=== PATIENT | male | born 1960 | race Caucasian/White ===

== ENCOUNTER 2022-11-16 04:02 | Inpatient (IN) ==
[2022-11-16] MEDS ORDERED: AMPICILLIN/SULBACTAM SOD 3,000 MG in 0.9 % SODIUM CHLORIDE 100 ML IV STA (04:20)
[2022-11-16] MEDS ORDERED: ACETAMINOPHEN 325 MG TAB PO STA (04:22)
--- NOTE | 2022-11-16 04:22 | Emergency Department Note ---
History of Present Illness General Chief complaint: Swelling/Edema to Extremity Stated complaint: EYES SWOLLEN SHUT, Time Seen by Provider: 11/16/22 04:10 History of Present Illness Maximum Pain Intensity: 8 This is a 62-year-old male that presents to the emergency department via private vehicle accompanied by with complaints of "right-sided facial swelling, pain, eye swollen". The patient notes that he went to bed this evening around 9 PM without any issue or symptoms. He then notes that he awoke around 3:45 AM with pain and swelling to the right side of the face. He notes the right lower eyelid, right side of the nose, right side of the face extending to the upper gumline is uncomfortable and swollen. Current pain 8/10. Patient denies any fevers or chills. This has never happened before. Patient denies any current medication use. Home Medications Medication Instructions Recorded Confirmed Type Cyclobenzaprine Hcl (Flexeril PRN ##0 02/12/09 History Unknown Dose) Propoxyphene-N/Acetaminophen 1 tab PO Q6HR PRN ##0 02/12/09 History (Darvocet-N 100 *) Allergies Allergy/AdvReac Type Severity Reaction Status Date / Time No Known Allergies Allergy Unknown Unverified 02/12/09 18:51 Past Med/Surg History Medical History Loss of eye Surgical History Hx of knee surgery Social History Smoking Status: Current every day smoker Tobacco Type: Cigarettes Preferred Language: Estonian Feels Safe at Home: Yes Review of Systems A total of 10 systems reviewed and were otherwise negative Physical Exam Vital Signs Vital Signs - 24 hr 11/16/22 04:05 11/16/22 05:09 11/16/22 07:00 Temperature 36.0 C L 37.3 C Temperature Source Temporal Artery Scan Oral Pulse Rate 77 Pulse Rate [Finger] 66 58 L Pulse Rhythm [Finger] Regular Respiratory Rate 20 18 18 Respiratory Effort / Characteristics Non-Labored Spontaneous Non-Labored Respiratory Depth Normal Normal Respiratory Pattern Regular Blood Pressure 158/92 H Blood Pressure [Left Arm] 150/83 H 168/75 H Blood Pressure Mean 114 Blood Pressure Mean [Left Arm] 105 106 Pulse Oximetry 100 99 98 Oxygen Delivery Method Room Air Room Air Room Air Sepsis New/Unexplained Change in Mental Status N/A Sepsis Action Taken by Nursing No Action Required VITAL SIGNS - Vital signs and nursing notes were reviewed. Stable and afebrile. GENERAL -62-year-old male appearing his stated age who is in no acute distress. Communicates well with provider and answers questions appropriately. SKIN -erythema and edema present to the right-sided infraorbital soft tissues and soft tissues overlying the premaxillary region on the right and right superior lip region. No meningeal or petechial rash. HEAD - NC/AT. EYES - PERRL with EOMI bilaterally. Sclera anicteric. EARS - No deformities of external structures noted on gross examination bilaterally. NOSE - Midline and without cyanosis. No epistaxis or purulent drainage noted. MOUTH/OROPHARYNX - Without perioral cyanosis. Patient edentulous to the superior dentition with erythema to the gumline. Right dentition without evidence of acute abnormality. Buccal mucosa pink and moist and without leukoplakia. Tongue midline with equal elevation of palate bilaterally. No tonsillar hypertrophy, erythema, or exudates noted. No drooling, stridor, trismus, wheezing or tripoding. Normal phonation. NECK - Neck with FROM. No lymphadenopathy noted. No nuchal rigidity. No evidence of Avtar's angina. LUNGS - Chest wall symmetric without accessory muscle use, intercostals retractions, or central cyanosis. Normal vesicular breath sounds CTA B/L. No wheezes, rales, or rhonchi appreciated. CARDIAC - RRR with S1/S2. No murmur, rubs, or gallops appreciated. EXTREMITIES - No clubbing or peripheral cyanosis. +5/5 strength noted in UE/LE bilaterally. NEUROLOGIC - Cranial nerves II through XII grossly intact. PSYCH - A&O, and cooperates fully with examiner. Pt is very pleasant and interacts well with examiner. Course Administered Medications Discontinued Medications Acetaminophen (Acetaminophen 325 Mg Tab) 650 mg PO NOW STA Stop: 11/16/22 04:23 Last Admin: 11/16/22 04:50 Dose: 650 mg Documented By: Ampicillin Sodium/Sulbactam Sodium 3,000 mg/ Sodium Chloride 108 mls @ 200 mls/hr IV NOW STA; Protocol Stop: 11/16/22 04:52 Last Infusion: 11/16/22 05:57 Dose: 0 mls/hr Documented By: Admin: 11/16/22 05:06 Dose: 200 mls/hr Documented By: FARZANEH Ioversol (Optiray 350 100ml) 100 ml IV ONCE ONE Stop: 11/16/22 05:02 Last Admin: 11/16/22 05:02 Dose: 85 ml Documented By: RENNY Medical Decision Making Laboratory Data Result diagrams: 11/16/22 04:30 11/16/22 04:30 Lab Results 11/16/22 11/16/22 11/16/22 Range/Units 04:30 04:30 04:30 WBC 9.10 (4.8-10.8) K/ul RBC 5.46 (4.63-6.08) M/uL Hgb 17.1 (14.0-18.0) g/dl POC Hgb (14.0-18.0) g/dl Hct 50.4 (40.1-51.0) % POC Hct (42-52) % MCV 92.3 (80.0-100.0) fL MCH 31.3 (25.0-34.0) pg MCHC 33.9 (32.0-36.0) g/dL RDW Std Deviation 44.6 (36.4-46.3) fL RDW Coeff of Bradford 13.2 (11.5-14.5) % Plt Count 154 (130-400) K/uL MPV 9.1 L (9.4-12.4) fL Immature Gran % (Auto) 0.3 % Neut % (Auto) 69.8 % Lymph % (Auto) 21.0 % [place] % (Auto) 6.6 % Eos % (Auto) 1.9 % Baso % (Auto) 0.4 % Neut # (Auto) 6.35 (1.4-6.5) K/uL Lymph # (Auto) 1.91 (1.2-3.4) K/uL [place] # (Auto) 0.60 (0.24-0.82) K/uL Eos # (Auto) 0.17 (0-0.50) K/uL Baso # (Auto) 0.04 (0-0.2) K/uL Immature Gran # (Auto) 0.03 H (0.00-0.02) K/uL POC Sodium (135-144) mmol/L Sodium 139 (136-145) mmol/L POC Potassium (3.3-5.0) mmol/L Potassium 4.3 (3.5-5.1) mmol/L POC Chloride (101-112) mmol/L Chloride 106 (98-107) mmol/L Carbon Dioxide 30 (21-32) mmol/L POC Total CO2 (24-31) mmol/L Anion Gap 3 (3-11) POC Anion Gap (16-25) mmol/L POC BUN (7-18) mg/dl BUN 13 (6-23) mg/dl Creatinine 0.72 (0.6-1.4) mg/dl POC Creatinine (0.6-1.3) mg/dl Est Cr Clr Drug Dosing 105.0 ml/min Est GFR ( Amer) 115.1 ml/min Est GFR (Non-Af Amer) 99.3 ml/min BUN/Creatinine Ratio 18.1 (10-20) Glucose 124 H (70-99(Fasting)) mg/dl POC Glucose (other) (70-99) mg/dl Lactate (0.4-2.0) mmol/L Calcium 8.8 (8.5-10.1) mg/dl POC Ioniz Calcium Sri (1.12-1.32) mmol/l Total Bilirubin 0.6 (0.2-1.0) mg/dl AST 12 L (13-39) U/L ALT 10 (7-52) U/L Alkaline Phosphatase 117 H (34-104) U/L Total Protein 7.2 (6.0-8.3) gm/dl Albumin 4.1 (3.4-5.0) gm/dl Globulin 3.1 (2.5-4.0) gm/dl Albumin/Globulin Ratio 1.3 (0.9-2) Procalcitonin < 0.05 (0-0.5) ng/ml SARS-CoV-2, RNA, NAAT (NEGATIVE) 11/16/22 11/16/22 11/16/22 Range/Units 04:30 04:30 04:42 WBC (4.8-10.8) K/ul RBC (4.63-6.08) M/uL Hgb (14.0-18.0) g/dl POC Hgb 17.7 (14.0-18.0) g/dl Hct (40.1-51.0) % POC Hct 52 (42-52) % MCV (80.0-100.0) fL MCH (25.0-34.0) pg MCHC (32.0-36.0) g/dL RDW Std Deviation (36.4-46.3) fL RDW Coeff of Bradford (11.5-14.5) % Plt Count (130-400) K/uL MPV (9.4-12.4) fL Immature Gran % (Auto) % Neut % (Auto) % Lymph % (Auto) % [place] % (Auto) % Eos % (Auto) % Baso % (Auto) % Neut # (Auto) (1.4-6.5) K/uL Lymph # (Auto) (1.2-3.4) K/uL [place] # (Auto) (0.24-0.82) K/uL Eos # (Auto) (0-0.50) K/uL Baso # (Auto) (0-0.2) K/uL Immature Gran # (Auto) (0.00-0.02) K/uL POC Sodium 141 (135-144) mmol/L Sodium (136-145) mmol/L POC Potassium 4.2 (3.3-5.0) mmol/L Potassium (3.5-5.1) mmol/L POC Chloride 103 (101-112) mmol/L Chloride (98-107) mmol/L Carbon Dioxide (21-32) mmol/L POC Total CO2 28 (24-31) mmol/L Anion Gap (3-11) POC Anion Gap 15.0 L (16-25) mmol/L POC BUN 13 (7-18) mg/dl BUN (6-23) mg/dl Creatinine (0.6-1.4) mg/dl POC Creatinine 0.8 (0.6-1.3) mg/dl Est Cr Clr Drug Dosing ml/min Est GFR ( Amer) ml/min Est GFR (Non-Af Amer) ml/min BUN/Creatinine Ratio (10-20) Glucose (70-99(Fasting)) mg/dl POC Glucose (other) 123 H (70-99) mg/dl Lactate 1.3 (0.4-2.0) mmol/L Calcium (8.5-10.1) mg/dl POC Ioniz Calcium Sri 1.19 (1.12-1.32) mmol/l Total Bilirubin (0.2-1.0) mg/dl AST (13-39) U/L ALT (7-52) U/L Alkaline Phosphatase (34-104) U/L Total Protein (6.0-8.3) gm/dl Albumin (3.4-5.0) gm/dl Globulin (2.5-4.0) gm/dl Albumin/Globulin Ratio (0.9-2) Procalcitonin (0-0.5) ng/ml SARS-CoV-2, RNA, NAAT NEGATIVE (NEGATIVE) Imaging Data Radiologist's Impression: Face CT 11/16/22 04:[address] WITH CONTRAST CLINICAL HISTORY: Right sided facial pain and swelling. COMPARISON STUDY: No previous studies for comparison. TECHNIQUE: Axial images through the face were obtained following intravenous injection of 85 cc of Optiray 350 IV. Sagittal and coronal reconstructions were viewed. Automated exposure control was utilized for the study. A dose lowering technique was utilized adhering to the principles of ALARA. FINDINGS: Visualized portions of the intracranial contents are unremarkable. Mastoid air cells are clear. There is moderate polypoid mucosal thickening of the right maxillary sinus. Otherwise, there is mild sinus mucosal thickening. Le ft globe prosthesis is noted. There is extensive right facial cellulitis, including preseptal cellulitis. No postseptal component is noted. There is no orbital abscess. The etiology is odontogenic with an 8 mm abscess along the right anterior aspect of the maxilla on axial image 164 of 281. This is related to a periapical abscess. Given numerous absent teeth, it is difficult to determine which is is the etiology.. There are numerous periapical absceses/lucencies. No additional soft tissue abscesses are present. There is no soft tissue gas. Parotid and submandibular glands are unremarkable. Major vasculature of the upper neck is patent. IMPRESSION: Extensive right facial cellulitis odontogenic in etiology. Extensive odontogenic disease with numerous absent teeth and periapical abscesses and lucencies. Associated 8 mm abscess along the right anterior aspect of the maxilla which is the etiology for this infectious process. Associated right preseptal cellulitis. No post septal component. No orbital abscess. ACT 112: Negative or not required by law. Electronically signed by: Fernando Tracey M.D. 11/16/2022 6:59 AM MDM Narrative Patient was seen and evaluated as above in room B09. Review was performed of nursing notes and vital signs. I did review pertinent previous visits and patient history. After obtaining a thorough history and physical examination the above work up was performed. Patient presents to us today for evaluation of right-sided facial swelling that he noticed when he awoke today. He clinically on examination has a fair amount of erythema and edema to the right side of the face concerning for cellulitis. No pain with EOMs. No evidence of orbital cellulitis clinically. Options of care were discussed with the patient. IV access was established. Labs were drawn. There is no leukocytosis or concerning anemia. No emergent metabolic disturbance. Mild hyperglycemia. Pro-[place]ilton normal. COVID testing negative. CT scan results as above. Extensive facial cellulitis with abscess noted. I discussed this with the on-call oral maxillofacial surgeon, Dr. Sarmiento. He will review the case. Patient will be admitted to the medicine service. IV antibiotics ordered at time of initial evaluation over clinical concern of cellulitis. Case discussed with the hospitalist. Please refer to further documentation regarding his stay. Patient initially wanted acetaminophen for pain and this was ordered. Pain then increased later in his stay. Morphine also ordered in addition to Zofran. GCS: 15 In the evaluation and treatment of this patient the following differential diagnoses were entertained: Facial cellulitis, abscess, orbital cellulitis, fracture, angioedema, among others. Impression & Plan Cellulitis of face, Abscess of face Discharge Plan Visit Data Chief Complaint: Swelling/Edema to Extremity Stated Complaint: EYES SWOLLEN SHUT, ED Provider: Isaac Sanchez ED Midlevel Provider: Ovi Moran Discharge Problem: Cellulitis of face, Abscess of face Patient Disposition: Admitted As Inpatient Condition: Good Forms Stand Alone Forms: My [employer] Prescriptions Prescriptions: No Action Cyclobenzaprine Hcl (Flexeril Unknown Dose) tablet PRN Qty: 0 Propoxyphene-N/Acetaminophen (Darvocet-N 100 *) tablet 1 tab PO Q6HR PRN Qty: 0 Referrals Referrals: Jesse Castano MD [Primary Care Provider] -
[2022-11-16 04:51] LABS: Basophils # (auto) 0.04 K/uL (0-0.2); Basophils % (auto) 0.4 %; Eosinophils # (auto) 0.17 K/uL (0-0.50); Eosinophils % (auto) 1.9 %; Hematocrit (blood only) 50.4 % (40.1-51.0); Hemoglobin 17.1 g/dl (14.0-18.0); Immature Granulocytes # (auto) 0.03 K/uL (0.00-0.02); Immature Granulocytes % (auto) 0.3 %; Lymphocytes # (auto) 1.91 K/uL (1.2-3.4); Mean Corpuscular Hemoglobin 31.3 pg (25.0-34.0); Mean Corpuscular Hgb Conc 33.9 g/dL (32.0-36.0); Mean Corpuscular Volume 92.3 fL (80.0-100.0); Mean Platelet Volume 9.1 fL (9.4-12.4); Monocytes % (auto) 6.6 %; Neutrophils # (auto) 6.35 K/uL (1.4-6.5); Neutrophils % (auto) 69.8 %; Platelet Count 154 K/uL (130-400); RDW Coefficient of Variation 13.2 % (11.5-14.5); RDW Standard Deviation 44.6 fL (36.4-46.3); Red Blood Count 5.46 M/uL (4.63-6.08)
[2022-11-16 04:56] LABS: iSTAT Creatinine 0.8 mg/dl (0.6-1.3); iSTAT Hemoglobin 17.7 g/dl (14.0-18.0); iSTAT Ionized Calcium 1.19 mmol/l (1.12-1.32); iSTAT Potassium 4.2 mmol/L (3.3-5.0)
[2022-11-16] MEDS ORDERED: OPTIRAY 350 100ml IV ONE (05:01)
[2022-11-16 05:18] LABS: Albumin Globulin Ratio 1.3 (0.9-2); Albumin Level 4.1 gm/dl (3.4-5.0); BUN Creatinine Ratio 18.1 (10-20); Bilirubin,Total 0.6 mg/dl (0.2-1.0); Calcium 8.8 mg/dl (8.5-10.1); Est GFR (African American) 115.1 ml/min; Est GFR (Non-African American) 99.3 ml/min; Globulin 3.1 gm/dl (2.5-4.0); Potassium 4.3 mmol/L (3.5-5.1); Total Protein 7.2 gm/dl (6.0-8.3)
--- NOTE | 2022-11-16 07:00 | CT Scan Report ---
FACIAL CT WITH CONTRAST CLINICAL HISTORY: Right sided facial pain and swelling. COMPARISON STUDY: No previous studies for comparison. TECHNIQUE: Axial images through the face were obtained following intravenous injection of 85 cc of Op tiray 350 IV. Sagittal and coronal reconstructions were viewed. Automated exposure control was utiliz ed for the study. A dose lowering technique was utilized adhering to the principles of ALARA. FINDINGS: Visualized portions of the intracranial contents are unremarkable. Mastoid air cells are cl ear. There is moderate polypoid mucosal thickening of the right maxillary sinus. Otherwise, there is mild sinus mucosal thickening. Left globe prosthesis is noted. There is extensive right facial cellul itis, including preseptal cellulitis. No postseptal component is noted. There is no orbital abscess. The etiology is odontogenic with an 8 mm abscess along the right anterior aspect of the maxilla on ax ial image 164 of 281. This is related to a periapical abscess. Given numerous absent teeth, it is dif ficult to determine which is is the etiology.. There are numerous periapical absceses/lucencies. No a dditional soft tissue abscesses are present. There is no soft tissue gas. Parotid and submandibular g lands are unremarkable. Major vasculature of the upper neck is patent. IMPRESSION: Extensive right facial cellulitis odontogenic in etiology. Extensive odontogenic disease with numerou s absent teeth and periapical abscesses and lucencies. Associated 8 mm abscess along the right anteri or aspect of the maxilla which is the etiology for this infectious process. Associated right presepta l cellulitis. No post septal component. No orbital abscess. ACT 112: Negative or not required by law. Electronically signed by: Fernando Tracey M.D. 11/16/2022 6:59 AM
[2022-11-16] MEDS ORDERED: ONDANSETRON INJ 2 MG/ML 2 ML VIAL IV STA (08:21)
[2022-11-16] MEDS ORDERED: MoRPHine SULFATE 4 MG/ML 1 ML CARP\\VIAL IV STA (08:21)
--- NOTE | 2022-11-16 08:37 | History & Physical Report ---
Date of Service November 16, 2022 Assessment & Plan (1) Cellulitis of face: (2) Abscess of face: Plan: - Admit to med surg - CT of the face shows multiple abscesses, the largest measuring 8 mm - Started on Unasyn IV in the ER, will continue - Consult oral maxillofacial surgery, Dr. Sarmiento for possible I&D - appreciate recs - Continue n.p.o. status for now in case of needs for surgical procedure - If remains NPO, then start NSS at 80 ml/hr for maintenance (3) Tobacco abuse: Plan: -Cessation encouraged, currently smokes 7 cigarettes a day, since age 12 -- 50 pack year history with previously smoking 1 ppd. -Nicotine patch offered however the patient declined (4) GERD (gastroesophageal reflux disease): Plan: -Stable, does not take any medication (5) HLD (hyperlipidemia): Plan: -Check lipid panel with a.m. labs, outpatient epic laboratories reviewed showing elevation from 2020 but no other labs since then. Pt previously was on fish oil and stopped. - Educate on diet modification, exercise and/or initiation of fish oil/statin therapy pending result DVT PPx: - teds, scds, ambulatory CODE: Full code Dispo: From home, likely to remain in the hospital x 1-2 days History of Present Illness Chief Complaint: Facial swelling Primary Care Provider: Jesse Castano MD This is a 62 yo M with PMHx of HLD, GERD, history of left prosthetic eye, and tobacco abuse who presents to the hospital with acute onset of facial swelling and under eye swelling. Patient notes that he was in his normal state of health yesterday, eating and drinking as normal, but upon waking today around approximately 4 AM to get ready to go to work, had extreme pain of the right side of his face and of his gums where he was unable to place his upper dentures due to pain. When he looked in the mirror he was shocked to see the amount of swelling and pocket of fluid under his right eye. He admits to having chills, denies fevers however. He has not had any recent illnesses, no recent teeth being pulled, no known scratch of the facial skin. 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 He denies any pus or oozing coming from the eye. He took 2 Tylenol tablets around 4:30 AM today due to pain which seem to only slightly helped. He has had morphine IV in the ER and reports his pain is very minimal at this time. Patient takes no home medications. He smokes 7 cigarettes/day and has smoked since age 17. He denies the need for nicotine patch. Allergies Allergy/AdvReac Type Severity Reaction Status Date / Time No Known Allergies Allergy Unknown Unverified 11/24/22 15:16 Home Medications Medication Instructions Recorded Confirmed Type amoxicillin 875 mg-potassium 1 tab PO BIDM 7 days #14 tabs 11/18/22 11/24/22 Rx clavulanate 125 mg tablet tramadol 50 mg tablet 50 mg PO Q12H PRN pain #10 tabs 11/18/22 11/24/22 Rx Past Med/Surg History Medical History (Updated 11/17/22 @ 09:23 by Quan Ayon MD) GERD (gastroesophageal reflux disease) History of eye prosthesis Left HLD (hyperlipidemia) Loss of eye Tobacco abuse Surgical History (Updated 11/18/22 @ 09:44 by Shanda France RN) Hx of colonoscopy 2020 Hx of knee surgery Hx of oral surgery (11/17/22) p Nasal Labial Infection Right Side(Right) - Todd Sarmiento DMD s Removal of a Few Retained Infected Roots Upper Jaw(Not Applicable) - Todd Sarmiento DMD Family History Mother Cancer Social History Smoking Status: Current every day smoker Tobacco Type: Cigarettes Second Hand Exposure: No; Hx Alcohol Use: No Hx Substance Use: No Preferred Language: Slovenian Communication Ability: Effective Visual Impairment: No Limitations Aviation Electronics Technician Required: No Beliefs That Will Affect Care: Gnosticist Current Living Situation: Spouse Feels Safe at Home: Yes Assistive Devices: Denture - Upper and Glasses Review of Systems Review of Systems: Constitutional: No fever or sweats, + chills Eyes: No diplopia, no worsening or blurred vision, left prosthetic eye, as per HPI ENT: normal hearing, no trouble swallowing, + sore right upper gums, unable to place dentures due to pain this morning Respiratory: No cough, sputum, dyspnea at rest or on exertion Cardiovascular: No chest pain, tightness or palpitations Abdomen: No pain, nausea, vomiting, diarrhea or constipation Musculoskeletal: No joint pain, calf pain, swelling Neurologic: No weakness, numbness/tingling, or balance problems Psychiatric: No anxiety or depression Skin: Facial skin right upper cheek is erythematous, appears swollen, otherwise no rash or itch Physical Exam Physical Exam: General: awake, alert, no apparent distress Head: Normocephalic, atraumatic, + edematous fluid pocket pooling under the right eye, + erythematous and edematous facial skin on the right cheek ENT: PERRL, EOMI, no pharyngeal exudate, no visible purulent material, no open sores in mouth, edentulous maxilla, mucous membranes moist Chest: Clear to auscultation, on room air, no adventitious breath sounds Cardiac: Regular rate and rhythm, no murmur, no JVD, normal peripheral pulses, good capillary refill Abdominal: NABS x 4 quadrants, soft, nondistended, nontender to palpation, no rebound or guarding Extremities: Normal inspection, no peripheral edema or erythema, calfs nontender to palpation Psych: Normal mood and affect Neuro: AAO x 3, strength intact bilaterally and rated 5/5, no motor deficits, speech is clear, no peripheral sensory deficits Results & Data Results & Data ([facility]) Vital Signs (Past 12 Hours) Vital Signs Temp Pulse Pulse Resp BP BP Pulse Ox 11/16/22 07:00 58 L 18 168/75 H 98 11/16/22 05:09 37.3 C 66 18 150/83 H 99 11/16/22 04:05 36.0 C L 77 20 158/92 H 100 O2 Del Method 11/16/22 07:00 Room Air 11/16/22 05:09 Room Air 11/16/22 04:05 Room Air Laboratory Results 11/16/22 04:30 Aerobic Blood Culture - Pending Blood Anaerobic Blood Culture - Pending 11/16/22 04:30 Aerobic Blood Culture - Pending Blood Anaerobic Blood Culture - Pending 11/16/22 11/16/22 11/16/22 04:42 04:30 04:30 WBC RBC Hgb POC Hgb 17.7 Hct POC Hct 52 MCV MCH MCHC RDW Std Deviation RDW Coeff of Bradford Plt Count MPV Immature Gran % (Auto) Neut % (Auto) Lymph % (Auto) [place] % (Auto) Eos % (Auto) Baso % (Auto) Neut # (Auto) Lymph # (Auto) [place] # (Auto) Eos # (Auto) Baso # (Auto) Immature Gran # (Auto) POC Sodium 141 Sodium POC Potassium 4.2 Potassium POC Chloride 103 Chloride Carbon Dioxide POC Total CO2 28 Anion Gap POC Anion Gap 15.0 L POC BUN 13 BUN Creatinine POC Creatinine 0.8 Est Cr Clr Drug Dosing Est GFR ( Amer) Est GFR (Non-Af Amer) BUN/Creatinine Ratio Glucose POC Glucose (other) 123 H Lactate 1.3 Calcium POC Ioniz Calcium Sri 1.19 Total Bilirubin AST ALT Alkaline Phosphatase Total Protein Albumin Globulin Albumin/Globulin Ratio Procalcitonin SARS-CoV-2, RNA, NAAT NEGATIVE 11/16/22 11/16/22 11/16/22 04:30 04:30 04:30 WBC 9.10 RBC 5.46 Hgb 17.1 POC Hgb Hct 50.4 POC Hct MCV 92.3 MCH 31.3 MCHC 33.9 RDW Std Deviation 44.6 RDW Coeff of Bradford 13.2 Plt Count 154 MPV 9.1 L Immature Gran % (Auto) 0.3 Neut % (Auto) 69.8 Lymph % (Auto) 21.0 [place] % (Auto) 6.6 Eos % (Auto) 1.9 Baso % (Auto) 0.4 Neut # (Auto) 6.35 Lymph # (Auto) 1.91 [place] # (Auto) 0.60 Eos # (Auto) 0.17 Baso # (Auto) 0.04 Immature Gran # (Auto) 0.03 H POC Sodium Sodium 139 POC Potassium Potassium 4.3 POC Chloride Chloride 106 Carbon Dioxide 30 POC Total CO2 Anion Gap 3 POC Anion Gap POC BUN BUN 13 Creatinine 0.72 POC Creatinine Est Cr Clr Drug Dosing 105.0 Est GFR ( Amer) 115.1 Est GFR (Non-Af Amer) 99.3 BUN/Creatinine Ratio 18.1 Glucose 124 H POC Glucose (other) Lactate Calcium 8.8 POC Ioniz Calcium Sri Total Bilirubin 0.6 AST 12 L ALT 10 Alkaline Phosphatase 117 H Total Protein 7.2 Albumin 4.1 Globulin 3.1 Albumin/Globulin Ratio 1.3 Procalcitonin < 0.05 SARS-CoV-2, RNA, NAAT Diagnostic Findings Face CT 11/16/22 04:[address] WITH CONTRAST CLINICAL HISTORY: Right sided facial pain and swelling. COMPARISON STUDY: No previous studies for comparison. TECHNIQUE: Axial images through the face were obtained following intravenous injection of 85 cc of Optiray 350 IV. Sagittal and coronal reconstructions were viewed. Automated exposure control was utilized for the study. A dose lowering technique was utilized adhering to the principles of ALARA. FINDINGS: Visualized portions of the intracranial contents are unremarkable. Mastoid air cells are clear. There is moderate polypoid mucosal thickening of the right maxillary sinus. Otherwise, there is mild sinus mucosal thickening. Left globe prosthesis is noted. There is extensive right facial cellulitis, including preseptal cellulitis. No postseptal component is noted. There is no orbital abscess. The etiology is odontogenic with an 8 mm abscess along the right anterior aspect of the maxilla on axial image 164 of 281. This is related to a periapical abscess. Given numerous absent teeth, it is difficult to determine which is is the etiology.. There are numerous periapical absceses/lucencies. No additional soft tissue abscesses are present. There is no soft tissue gas. Parotid and submandibular glands are unremarkable. Major vasculature of the upper neck is patent. IMPRESSION: Extensive right facial cellulitis odontogenic in etiology. Extensive odontogenic disease with numerous absent teeth and periapical abscesses and lucencies. Associated 8 mm abscess along the right anterior aspect of the maxilla which is the etiology for this infectious process. Associated right preseptal cellulitis. No post septal component. No orbital abscess. ACT 112: Negative or not required by law. Electronically signed by: Fernando Tracey M.D. 11/16/2022 6:59 AM Code Status & VTE Plan Code Status Full code-discussed with patient at bedside Supervising Physician Co-Signing Physician Notes Pt was seen and examined. Agreed with Janet PAIGE exam, assessment and plan. 62 yo M with PMHx of HLD, GERD, history of left prosthetic eye, and tobacco abuse who presents to the hospital with c/o facial swelling and tenderness. Pt said that he was fine last night, but this morning when he woke up he right side of his face was swelling and tender. CT face showed extensive right facial cellulitis odontogenic in etiology. Extensive odontogenic disease with numerous absent teeth and periapical abscesses and lucencies. Associated 8 mm abscess along the right anterior aspect of the maxilla which is the etiology for this infectious process. Received Unasyn in the ER. Will continue IV Unasyn. Will consult oral maxillofacial surgery, Dr. Sarmiento for possible I&D. Will keep NPO for now until evaluate by Dr. Sarmiento. Continue monitor closely. MD Zenaida
[2022-11-16] MEDS ORDERED: ONDANSETRON INJ 2 MG/ML 2 ML VIAL IV PRN (10:25)
[2022-11-16] MEDS ORDERED: traMADol HCL 50 MG TABLET PO PRN (10:25)
[2022-11-16] MEDS: AMPICILLIN/SULBACTAM SOD 3,000 MG in 0.9 % SODIUM CHLORIDE 100 ML IV SCH ×3 (11:55→19:08)
--- NOTE | 2022-11-16 15:19 | Oral/Maxillofacial Consult ---
Date of Consultation November 16, 2022 Assessment & Plan (1) Cellulitis of face: (2) Abscess of face: (3) Retained dental root: History of Present Illness Attending Physician: Reji Estevez MD History of Present Illness Oral Maxillofacial Surgery Exam Present Complaint: (1) Cellulitis of face: (2) Abscess of face: Plan: - Admit to med surg - CT of the face shows multiple abscesses, the largest measuring 8 mm - Started on Unasyn IV in the ER, will continue (3) Tobacco abuse: Plan: -Cessation encouraged, currently smokes 7 cigarettes a day, since age 12 -- 50 pack year history with previously smoking 1 ppd. -Nicotine patch offered however the patient declined (4) GERD (gastroesophageal reflux disease): Plan: -Stable, does not take any medication (5) HLD (hyperlipidemia): Plan: -Check lipid panel with a.m. labs, outpatient epic laboratories reviewed showing elevation from 2020 but no other labs since then. Pt previously was on fish oil and stopped. - Educate on diet modification, exercise and/or initiation of fish oil/statin therapy pending result DVT PPx: - teds, scds, ambulatory CODE: Full code Dispo: From home, likely to remain in the hospital x 1-2 days History of Present Illness Chief Complaint: Facial swelling Primary Care Provider: Jesse Castano MD This is a 62 yo M with PMHx of HLD, GERD, history of left prosthetic eye, and tobacco abuse who presents to the hospital with acute onset of facial swelling and under eye swelling. Patient notes that he was in his normal state of health yesterday, eating and drinking as normal, but upon waking today around appro ximately 4 AM to get ready to go to work, had extreme pain of the right side of his face and of his gums where he was unable to place his upper dentures due to pain. When he looked in the mirror he was shocked to see the amount of swelling and pocket of fluid under his right eye. He admits to having chills, denies fevers however. He has not had any recent illnesses, no recent teeth being pulled dental extraction about 1 year ago, no known scratch of the facial skin. 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 He denies any pus or oozing coming from the eye. He took 2 Tylenol tablets around 4:30 AM today due to pain which seem to only slightly helped. He has had morphine IV in the ER and reports his pain is very minimal at this time. Patient takes no home medications. He smokes 7 cigarettes/day and has smoked since age 17. He denies the need for nicotine patch. AllergiesNKDA Oral Exam: Finding-grossly swollen muco-buccal fold right side with edema and soft swelling right cheek and lower eye lid. No fluctuance yet--will start heat and hopefully will plan L&D tomorrow in OR. There a few retained root tip that have become symptoms and are the cause of the present event. Imaging: FACIAL CT WITH CONTRAST CLINICAL HISTORY: Right sided facial pain and swelling. FINDINGS: Visualized portions of the intracranial contents are unremarkable. Mastoid air cells are clear. There is moderate polypoid mucosal thickening of the right maxillary sinus. Otherwise, there is mild sinus mucosal thickening. Left globe prosthesis is noted. There is extensive right facial cellulitis, including preseptal cellulitis. No postseptal component is noted. There is no orbital abscess. The etiology is odontogenic with an 8 mm abscess along the right anterior aspect of the maxilla on axial image 164 of 281. This is related to a periapical abscess. Given numerous absent teeth, it is difficult to determine which is is the etiology. There are numerous periapical absceses/lucencies. No additional soft tissue abscesses are present. There is no soft tissue gas. Parotid and submandibular glands are unremarkable. Major vasculature of the upper neck is patent. IMPRESSION: Extensive right facial cellulitis odontogenic in etiology. Extensive odontogenic disease with numerous absent teeth and periapical abscesses and lucencies. Associated 8 mm abscess along the right anterior aspect of the maxilla which is the etiology for this infectious process. Associated right preseptal cellulitis. No post septal component. No orbital abscess. Soft tissue: floor of the mouth, tongue, hard/soft palate, posterior pharyngeal area all with in normal limits, no pathology or abnormal findings noted. There is gross swelling in the nasolabial fold obliterating the fold he is not able to get his dentures in place as a result of the swelling. TMJ exam: No pop, clicking, pain, good ROM, No history of TMJ injury or dysfunction Periodontal exam: mild periodontal gingival tissue inflammation with early evidence of periodontal pathology lower There a few retained infected root tips that will need removal with the I&D. Head/Neck exam: Neck is supple, FROM, Able to extend and flex neck w/o difficulty, no masses, no abnormalities, no airway issues, no evidence of sleep apnea. Treatment Plan: I&D tomorrow in OR Removal of retained infected root tips upper Set up with general anesthesia in hospital due to complexity of the procedure I reviewed the treatment plan and consent with the patient. Understanding was expressed. Time was given for questions regarding the surgery, risks and post op care. Discussed alternative to treatment--procedure as planned. The following roots infected and removal is indicated PORFIRIO: Risks discussed: Bleeding,Pain,swelling,infection, dry socket, delayed healing, nerve injury to face,lips,tongue,chin area which could be permanent (rare). TMJ, jaw stiffness, change in bite (rare), ear pain (referred). Sinus problems like fistula or infection. Need to leave a small root fragment in place to avoid injury to nerve or sinus. Relationship of wisdom teeth to nerve/sinus and risk of jaw fracture. Home care reviewed: tooth brushing, rinsing, follow up care with Dr Sarmiento. diet=[id number] dental. Discussed activity level, driving/work while on Rx pain Meds. Adjustments for dentures as needed Surgery to be set up tomorrow in OR NPO midnight Consent signed Reviewed procedures --Alon understands and accepts treatment plan. Allergies Allergy/AdvReac Type Severity Reaction Status Date / Time No Known Allergies Allergy Unknown Unverified 02/12/09 18:51 Patient History Medical History (Updated 11/16/22 @ 15:54 by Todd Sarmiento, NEO) GERD (gastroesophageal reflux disease) History of eye prosthesis Left HLD (hyperlipidemia) Loss of eye Tobacco abuse Surgical History (Updated 11/16/22 @ 08:37 by Gloria Sosa PA-C) Hx of colonoscopy 2020 Hx of knee surgery Family History (Updated 11/16/22 @ 08:36 by Gloria Sosa PA-C) Mother Cancer Social History Smoking Status: Current every day smoker Tobacco Type: Cigarettes Second Hand Exposure: No; Do You Dip or Chew Tobacco: No; Tobacco Cessation Education Requested by Patient: No Hx Alcohol Use: No Hx Substance Use: No Preferred Language: Mexican Spike Driver Required: No Beliefs That Will Affect Care: Religion Current Living Situation: Spouse Other Information That Helps Us Care for You: No Feels Safe at Home: Yes Safety Concerns: Feels Safe At This Time Assistive Devices: Denture - Upper and Glasses Results & Data ([facility]) Vital Signs (Past 12 Hours) Vital Signs Temp Pulse Pulse Resp BP BP Pulse Ox 11/16/22 09:06 65 18 162/81 H 97 11/16/22 09:00 65 18 162/81 H 97 11/16/22 07:00 58 L 18 168/75 H 98 11/16/22 05:09 37.3 C 66 18 150/83 H 99 11/16/22 04:05 36.0 C L 77 20 158/92 H 100 O2 Del Method 11/16/22 09:06 Room Air 11/16/22 09:00 Room Air 11/16/22 07:00 Room Air 11/16/22 05:09 Room Air 11/16/22 04:05 Room Air PG Care Time/CCT Total # of Minutes Spent Total Time Spent with Patient: Total time spent is greater than 50% in coordination of care (as documented) at patient's floor/unit and/or counseling patient: Coding Level of Care Code 40054 Inpt Consult Level 3 Diagnoses Cellulitis of face L03.211 Abscess of face L02.01 Retained dental root K08.3
[2022-11-16] MEDS: ACETAMINOPHEN 325 MG TAB PO PRN (19:41)
[2022-11-17] MEDS: AMPICILLIN/SULBACTAM SOD 3,000 MG in 0.9 % SODIUM CHLORIDE 100 ML IV SCH ×5 (00:28→23:12)
[2022-11-17 07:57] LABS: Hematocrit (blood only) 49.2 % (40.1-51.0); Mean Corpuscular Hemoglobin 30.8 pg (25.0-34.0); Mean Corpuscular Hgb Conc 34.6 g/dL (32.0-36.0); Mean Corpuscular Volume 89.1 fL (80.0-100.0); Mean Platelet Volume 9.5 fL (9.4-12.4); Platelet Count 162 K/uL (130-400); RDW Standard Deviation 42.5 fL (36.4-46.3); Red Blood Count 5.52 M/uL (4.63-6.08); White Blood Count 9.47 K/ul (4.8-10.8)
[2022-11-17 08:15] LABS: BUN Creatinine Ratio 15.4 (10-20); Calcium 9.1 mg/dl (8.5-10.1); Chol HDL Ratio 4.7 (0-5); Creatinine Clr Calc Pharmacy 116.3 ml/min; Est GFR (Non-African American) 103.5 ml/min; Potassium 3.9 mmol/L (3.5-5.1)
[2022-11-17] MEDS ORDERED: MIDAZOLAM HCL 1 MG/ML 2ML VIAL ONE (08:38)
[2022-11-17] MEDS ORDERED: PROPOFOL IV EMULSION 10 MG/ML 20 ML VIAL IV ONE (08:38)
[2022-11-17] MEDS ORDERED: ONDANSETRON INJ 2 MG/ML 2 ML VIAL ONE (08:38)
[2022-11-17] MEDS ORDERED: fentaNYL citrate 100 MCG/2 ML VIAL ONE (08:38)
[2022-11-17] MEDS ORDERED: DEXAMETHASONE SOD INJ 4 MG/ML VIAL ONE (08:38)
[2022-11-17] MEDS ORDERED: SUCCINYLCHOLINE CHLORIDE 20 MG/ML 10 ML VIAL IV ONE (08:40)
[2022-11-17] MEDS ORDERED: ROCURONIUM BROMIDE 10 MG/ML 5 ML VIAL IV ONE ×2 (08:45)
[2022-11-17] MEDS ORDERED: fentaNYL citrate 100 MCG/2 ML VIAL IV PRN (09:11)
[2022-11-17] MEDS ORDERED: ONDANSETRON INJ 2 MG/ML 2 ML VIAL IV PRN (09:11)
[2022-11-17] MEDS ORDERED: ePHEDrine sulfate 50 MG/ML AMP IV PRN (09:11)
[2022-11-17] MEDS ORDERED: HYDROmorphone INJ 1 MG/ML SYRINGE IV PRN (09:11)
[2022-11-17] MEDS ORDERED: ATROPINE SULFATE 0.1 MG/ML 10ML SYR IV PRN (09:11)
--- NOTE | 2022-11-17 09:14 | Anesthesiology Consultation ---
Date of Service November 17, 2022 Assessment & Plan (1) Encounter for pre-operative examination: Chart Review Chart Review: Acceptable Risk for Surgery and Patient NOT seen in Pre Admission Testing Consults Requested none History Surgery Operation Date: 11/17/22 07:55 Proposed Procedures p Nasal Labial Infection Right Side - Todd Sarmiento DMD s Removal of a Few Retained Infected Roots Upper Jaw - Todd Sarmiento DMD Height/Weight Height: 5 ft 9 in Weight: 81.9 kg Allergies Allergy/AdvReac Type Severity Reaction Status Date / Time No Known Allergies Allergy Unknown Unverified 02/12/09 18:51 Medications Active Medications Generic Name Dose Route Start Last Admin Trade Name Freq PRN Reason Stop Dose Admin Acetaminophen 650 mg 11/16/22 19:15 11/16/22 19:41 Acetaminophen 325 Mg Tab PO 12/16/22 19:14 650 mg Q4H PRN Administration fever or mild pain Ampicillin Sodium/Sulbactam 108 mls @ 200 mls/hr 11/16/22 12:00 11/17/22 06:40 Sodium 3,000 mg/ Sodium IV 11/23/22 11:59 Infused Chloride Q6H LETITIA Infusion Protocol NPO Date Last Intake of Fluids: 11/16/22 Time Last Intake of Fluids: 21:00 Date Last Intake of Solids: 11/16/22 Time Last Intake of Solids: 21:00 Past Medical History Medical History GERD (gastroesophageal reflux disease) History of eye prosthesis Left HLD (hyperlipidemia) Loss of eye Tobacco abuse Exercise / Class Metabolic Activity II 4-5 Yardwork/Stairs/Walk up hill Past Family History Family History Mother Cancer Past Surgical History Surgical History Hx of colonoscopy 2020 Hx of knee surgery Past Anesthesia History No Hx of Anesthesia Complications and No Family Hx of Anesthesia Complications Social History Smoking Status: Current every day smoker tobacco type: cigarettes Do You Dip or Chew Tobacco: No Hx Alcohol Use: No Hx Substance Use: No substance use type: does not use Physical Exam Vital Signs Last Vital Signs Temp 37.3 C 11/17/22 08:59 Pulse 79 11/17/22 08:59 Resp 20 11/17/22 08:59 BP 146/73 H 11/17/22 08:59 Pulse Ox 94 11/17/22 08:59 O2 Del Method 11/17/22 08:59 Testing Laboratory Results 11/17/22 07:26 11/17/22 07:26 11/16/22 04:30 Aerobic Blood Culture - Preliminary Blood No growth in Aerobic bottle after 24 hours. Anaerobic Blood Culture - Preliminary No growth in Anaerobic bottle after 24 hours. 11/16/22 04:30 Aerobic Blood Culture - Preliminary Blood No growth in Aerobic bottle after 24 hours. Anaerobic Blood Culture - Preliminary No growth in Anaerobic bottle after 24 hours.
--- NOTE | 2022-11-17 09:26 | History & Physical Bridge Note ---
Date of Service November 17, 2022 History & Physical Bridge Note I have examined the patient, reviewed the History & Physical and in the interval since the performance of the History & Physical I have noted the following changes of clinical significance: no changes noted The infection is more localized we will plan I and D today--upper right side
[2022-11-17] MEDS ORDERED: BUPIVACAINE/EPINEPHRINE 0.5% 1:200,000 1.8 ML CARP ONE (09:36)
[2022-11-17] MEDS ORDERED: CHLORHEXIDINE GLUCONATE 0.12% 480 ML MT ONE (09:36)
--- NOTE | 2022-11-17 10:46 | Post Operative Brief Note ---
PG Immediate Post Op with CF Date of Surgery November 17, 2022 Pre & Post Diagnosis Operation Date: 11/17/22 07:55 Pre-Op Diagnosis: (1) Cellulitis of face: (2) Abscess of face: (3) Retained dental root: Post-Op Diagnosis: (1) Cellulitis of face: (2) Abscess of face: (3) Retained dental root: I identified the patient and participated in the time-out.: Yes Procedure Operation Date: 11/17/22 07:55 Actual Procedures p Nasal Labial Infection Right Side(Right) - Todd Sarmiento DMD s Removal of a Few Retained Infected Roots Upper Jaw(Not Applicable) - Todd Sarmiento DMD Surgeon Todd Sarmiento DMD Repairer Hairspring none Estimated Blood Loss 3 Findings Consistent with Post-Op Diagnosis acute naso-labial infection upper right retained roots upper right retained root with large opening into left maxillary sinus Fluids none Specimens Specimen Description: culture 1. nasolabial infection Permanent A. sinus polyp Anesthesia Type General Complications none
[2022-11-17] MEDS ORDERED: LABETALOL HCL IV 5 MG/ML 20ML IV STA (11:16)
[2022-11-17] MEDS ORDERED: LABETALOL HCL IV 5 MG/ML 20ML IV ONE (11:17)
--- NOTE | 2022-11-17 12:47 | Anesthesiology Progress Note ---
Date of Service November 17, 2022 Anesthesia Post Procedure Vital Signs Vital Signs: Temp Pulse Pulse Resp BP BP Pulse Ox 11/17/22 11:59 65 14 166/82 H 94 11/17/22 11:45 68 17 166/81 H 93 11/17/22 11:30 36.5 C 66 21 161/86 H 94 11/17/22 11:20 74 18 166/82 H 94 11/17/22 11:00 78 13 146/84 H 95 11/17/22 10:50 80 18 159/90 H 99 11/17/22 11:09 75 17 190/90 H 95 11/17/22 10:42 36.2 C L 80 18 195/98 H 99 11/17/22 08:59 37.3 C 79 20 146/73 H 94 11/17/22 07:17 36.8 C 84 18 162/62 H 96 11/16/22 23:59 37.1 C 66 18 117/66 97 11/16/22 23:31 37.1 C 66 18 117/66 97 11/16/22 20:32 37.5 C 11/16/22 18:46 39.0 C H 79 18 154/75 H 96 11/16/22 15:43 37.5 C 80 18 156/83 H 98 O2 Del Method O2 Flow Rate 11/17/22 11:59 Room Air 11/17/22 11:45 Room Air 11/17/22 11:30 Room Air 11/17/22 11:20 Room Air 11/17/22 11:00 Room Air 11/17/22 10:50 Oxymask 6 11/17/22 11:09 Room Air 11/17/22 10:42 Oxymask 6 11/17/22 08:59 Room Air 11/17/22 07:17 Room Air 11/16/22 23:59 Room Air 11/16/22 23:31 Room Air 11/16/22 20:32 11/16/22 18:46 Room Air 11/16/22 15:43 Room Air Pain Intensity Right Face: Pain Intensity: 4 Transfer of Care Handoff Completed per policy Notes Mental Status: alert / awake / arousable and participated in evaluation Patient Amnestic to Procedure: Yes Nausea / Vomiting: adequately controlled Pain: adequately controlled Airway Patency, RR, SpO2: stable & adequate BP & HR: stable & adequate Hydration State: stable & adequate Anesthetic Complications: no major complications apparent and Pt Satisfied with anesthetic care
--- NOTE | 2022-11-17 23:03 | Operative Report ---
PG Post Operative Report Pre & Post Diagnosis Operation Date: 11/17/22 07:55 Pre-Op Diagnosis: (1) Cellulitis of face: (2) Abscess of face: (3) Retained dental root: Post-Op Diagnosis: (1) Cellulitis of face: (2) Abscess of face: (3) Retained dental root: I identified the patient and participated in the time-out.: Yes Procedure Diagnosis: Acute nasal/labial infection right side K12.2 Oral/sinus opening, with polyps J32.0 J32.9 CPT # Intraoral I&D nasal/labial area right side 99327 Closure of oral/sinus opening left side 18735 Removal of retained roots Operation Date: 11/17/22 07:55 Actual Procedures p Nasal Labial Infection Right Side(Right) - Todd Sarmiento DMD s Removal of a Few Retained Infected Roots Upper Jaw(Not Applicable) - Todd Sarmiento DMD Surgeon Todd Sarmiento DMD Wireless Consultant none Estimated Blood Loss 3 Findings Consistent with Post-Op Diagnosis Specimens I&D Left sinus polyps Anesthesia Type General Indications 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 (Not Applicable) - Todd Sarmiento DMD Once cleared for surgery general anesthesia was achieved, the right eye was protected by the anesthesia dept criteria. A time out was take for patient ID, antibiotics, equipment and position verification once all agreed the procedure began. Local anesthesia using Marcaine with a vasoconstrictor ( 1.8 ml per site) given on both the upper right/left sides of the maxilla A throat pack was placed after the oral cavity was irrigated with saline. Once a surgical level of anesthesia was obtained and the local anesthesia was given time for the blocks the surgery was started. I turned my attention to the infection which was located in upper right naso- labial fold and the retained infected roots. As a result of the infection the mucobuccal fold and infraorbital area was grossly swollen. Incision and Drainage Using a 15 blade an incision was made on the alveolar ridge from the mid line to area # 3. Once the incision was made a lot of pus extruded from the site. This drainage was cultured for anaerobic and aerobic bacteria. A curved hemostat was carefully placed into the infected space along the medial side of the nose into the infraorbital space. Some further drainage was now allowed to escape. I palpated the cheek and lateral nose area and no further drainage was expressed. The area was irrigated with at least 100 ml of NS solution. I now turned my attention to remove the infected retained roots which were the etiology of the present infection. Upper roots in area 4-5 Using the prior reflected full thick Muco-periosteal flap, the flap was reflected to expose the the bone adjacent to the retained infected roots in the 4-5 area. The rogue was used to remove bone, the roots were removed, there was a large amount of granulation tissue on the apex and some more pus that was expressed. Using a 2-0 chromic the flap was sutured close. Upper roots in area 13-14 area and closure of the oral/sinus opening. The tissue was very swollen and boggy in his area. A full thick Muco-periosteal flap was raised, the flap was reflected to expose the the bone adjacent to the retained infected roots in the 13-14 area. The rogue was used to remove bone, the roots were removed, there was a large amount of granulation tissue on the apex, upon removal of the infected roots a large opening into the sinus was noted as I expected from the CT scan. There was a lot of infected tissue in the sinus which I curetted out. I irrigated the sinus, I adjusted the flaps with releasing incisions for gain relaxation and with a 4-0 Vicryl and 2-0 chromic a water tight closure was obtained. I inspected the sites to insure all bleeding was controlled. I removed the throat pack and suctioned the throat. Bilateral gauze pressure dressings were placed. All instrument and sponge count was correct. the patient was allowed to awake from the anesthesia. Once full awake the anesthesia tube was removed and the patient was taken to the recovery room with all vital sign stable. The patient tolerated the surgery very well. I will follow the patient in my office, Rx and instructions will be given upon discharge. I attest to the content of the Intraoperative Record and any orders documented therein. Any exceptions are noted below.
--- NOTE | 2022-11-18 00:01 | Hospitalist Progress Note ---
Date of Service November 17, 2022 Assessment & Plan (1) Cellulitis of face: (2) Abscess of face: Plan: Present on admission with right facial swelling CT of the face showed multiple abscesses, the largest measuring 8 mm S/P Incision and Drainage nasal labial abscess; Removal of infected roots # 5-6 area and # 13-14 area associated with hole in left sinus, closure of oral sinus opening performed by Dr. Sarmiento Continue IV Unasyn for now Will follow I&D wound culture Continue tramadol prn Case discussed with dr. Sarmiento that recommended to monitor for tonight and transition to Augmentin on discharge Continue monitor closely (3) Tobacco abuse: Plan: currently smokes 7 cigarettes a day, since age 12 -- 50 pack year history with previously smoking 1 ppd. counseling on smoking cessation Pt declined nicotine patch (4) GERD (gastroesophageal reflux disease): Plan: Stable (5) HLD (hyperlipidemia): Plan: Chol 207, LDL 146, HDL 44 and triglycerides 83 Educate on diet modification, exercise and/or initiation of fish oil/statin therapy pending result DVT PPx: teds, scds, ambulatory due to recent surgical procedure CODE: Full code Disposition Plan to discharge tomorrow Admission and Anticipated Discharge Date Admission Date: November 16, 2022 Subjective Pt was seen and examined for follow up of facial swelling Lying in bed with no acute distress with at bedside Pt had the I&D doen early by dr. Sarmiento I reached out to dr. Sarmiento over the phone that recommended to discharge on Augmentin tomorrow Pt said that he feels much better Denies any facial pain, fever, SOB and palpitation Review of Systems Review of Systems: All systems reviewed & are unremarkable except as noted in Subjective Physical Exam Physical Exam: General- No acute distress Head- atraumatic Eyes- PERRL, EOMI, ENT- oropharynx clear Facial- -improved swollen muco-buccal fold right side, right cheek and lower eye lid. Neck- supple, no JVD Lungs- clear to auscultation Heart- regular rhythm; no murmur Abdomen- normal bowel sounds, soft, nontender Extremities- no calf tenderness Neuro- alert, oriented x 3; PERRL, EOMI; no facial palsy; no dysarthria Skin- warm & dry Results & Data Results & Data ([facility]) Vital Signs (Past 12 Hours) Vital Signs Temp Pulse Pulse Resp BP Pulse Ox O2 Del Method 01/03/23 20:29 36.5 C 64 16 129/80 95 Room Air 11/17/22 15:13 36.6 C 62 18 116/62 96 Room Air 11/17/22 13:22 37.2 C 66 18 123/60 95 Room Air 11/17/22 12:54 36.9 C 65 18 136/71 95 Room Air 11/17/22 12:20 37.3 C 63 16 150/78 H 95 Room Air
[2022-11-18] MEDS: AMPICILLIN/SULBACTAM SOD 3,000 MG in 0.9 % SODIUM CHLORIDE 100 ML IV SCH ×2 (05:15→12:48)
[2022-11-18] MEDS: ACETAMINOPHEN 325 MG TAB PO PRN (09:07)
--- NOTE | 2022-11-18 14:55 | Discharge Summary ---
Date of Service November 18, 2022 Admission HPI Per Admitting Provider This is a 62 yo M with PMHx of HLD, GERD, history of left prosthetic eye, and tobacco abuse who presents to the hospital with acute onset of facial swelling and under eye swelling. Patient notes that he was in his normal state of health yesterday, eating and drinking as normal, but upon waking today around approximately 4 AM to get ready to go to work, had extreme pain of the right side of his face and of his gums where he was unable to place his upper dentures due to pain. When he looked in the mirror he was shocked to see the amount of swelling and pocket of fluid under his right eye. He admits to having chills, denies fevers however. He has not had any recent illnesses, no recent teeth being pulled, no known scratch of the facial skin. 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 He denies any pus or oozing coming from the eye. He took 2 Tylenol tablets around 4:30 AM today due to pain which seem to only slightly helped. He has had morphine IV in the ER and reports his pain is very minimal at this time. Patient takes no home medications. He smokes 7 cigarettes/day and has smoked since age 17. He denies the need for nicotine patch. Discharge Exam General- No acute distress Head- atraumatic Eyes- PERRL, EOMI, ENT- oropharynx clear Facial- -improved swollen muco-buccal fold right side, right cheek and lower eye lid. Neck- supple, no JVD Lungs- clear to auscultation Heart- regular rhythm; no murmur Abdomen- normal bowel sounds, soft, nontender Extremities- no calf tenderness Neuro- alert, oriented x 3; PERRL, EOMI; no facial palsy; no dysarthria Skin- warm & dry Discharge Data Allergies Allergy/AdvReac Type Severity Reaction Status Date / Time No Known Allergies Allergy Unknown Unverified 02/12/09 18:51 Consultations 11/16/22 07:41 ED Decision to Admit Stat 11/16/22 10:25 Consult Oromaxillofacial Surgery Routine Procedures Performed Operation Date: 11/17/22 07:55 Actual Procedures p Nasal Labial Infection Right Side(Right) - Todd Sarmiento DMD s Removal of a Few Retained Infected Roots Upper Jaw(Not Applicable) - Todd Sarmiento DMD Ordered Studies 11/16/22 04:20 CT facial bones w con Urgent Hospital Course (1) Cellulitis of face: (2) Abscess of face: Present on admission with right facial swelling CT of the face showed multiple abscesses, the largest measuring 8 mm S/P Incision and Drainage nasal labial abscess; Removal of infected roots # 5-6 area and # 13-14 area associated with hole in left sinus, closure of oral sinus opening performed by Dr. Sarmiento Continue IV Unasyn for now Will follow I&D wound culture Continue tramadol prn Case discussed with dr. Sarmiento that recommended to monitor for tonight and transition to Augmentin on discharge Continue monitor closely (3) Tobacco abuse: currently smokes 7 cigarettes a day, since age 12 -- 50 pack year history with previously smoking 1 ppd. counseling on smoking cessation Pt declined nicotine patch (4) GERD (gastroesophageal reflux disease): Stable (5) HLD (hyperlipidemia): Chol 207, LDL 146, HDL 44 and triglycerides 83 Educate on diet modification, exercise and/or initiation of fish oil/statin therapy pending result DVT PPx: teds, scds, ambulatory due to recent surgical procedure CODE: Full code Disposition Plan to discharge tomorrow Discharge Plan Discharge Items Patient Disposition: Home - Self-Care Reason For Visit: FT FACIAL SWELLING/PAIN Discharge Diagnosis: s/p acute facial infection upper right side / nose and eye Condition on Discharge: Good Activity: Resume your previous activity Lifting: Gradually increase as tolerated Bathing: No limitations Exercise/Sports: Gradually increase as tolerated Driving/Machine Use: Resume 1 day after discharge Weightbearing: Full weightbearing Non-emergency contact: Surgeon Call non-emergency contact if: your temperature is above 101.5, your wound has increased redness, your wound has increased drainage and your wound pain has increased Follow-up/Referrals: Jesse Castano MD [Primary Care Provider] - (Date & Time 11/24/2022 1:40 PM Provider Trung Vences MD [facility] ) Todd Sarmiento DMD [Physician] - Dietitian Info: soft - please keep dentures out until I see you at your post op appointment Diet: Full liquid and Clear liquid Diet Texture: Mechanical soft (ground) Diet Comment: no dentures--soft foods only to allow healing Addtl Attending Provider Instructions: Follow up with your primary care provider 11/24/2022 @ 1:40 PM Trung Vences MD [facility] Follow up with Oral maxillofacial Dentistry Dr. Sarmiento on WednesdayNOVEMBER 24 at 3:15 pm Your provider will follow the wound culture Complete the course of the antibiotic with Augmentin Please do not drive or operate any machine while on Tramadol Please hold next dose of tramadol if you become drowsy and lethargy OK to take extra strength Tylenol every 6 to 8 hrs for pain ADDITIONAL ACTIVITY RECOMMENDATIONS: * please keep you upper denture out until you see me next week to promote healing * May teeth after every meal. It is very important to keep your mouth clean to prevent infection. * Starting tonight rinse with the Peridex as directed then 2 x a day * it is very important to keep well hydrated, this prevents fever * avoid heavy nose blowing as a result of the sinus closure upper left SPECIAL CARE INSTRUCTIONS: *It is not uncommon that between day 2-4 that your swelling will be at its worst this is very normal, do not be alarmed. * Keep ice on the side of your face for the next 24 to 36 hours. This will help keep the swelling down. * After 36 hours, apply heat (hot water bottle or heating pad) for the next two days, as often as possible. * Tomorrow start rinsing your mouth with 1/2 teaspoon salt in 8 ounces warm water. This rinse should be used every 4-6 hours. * You may experience slight nausea. To prevent this, never take your medication on an empty stomach. If nauseated, take small sips of moe joya until you feel better; then you may start on applesauce and toast. * Some swelling is common. It should gradually decrease within 4-5 days. * A certain amount of bleeding is to be expected. It is often possible to control mild oozing by placing folded gauze over the area and biting down for 30 minutes. If you are unable to control excessive bleeding, call Dr Sarmiento at [phone] * You may experience some discomfort for a few days. If pain or swelling increases, Call Dr Sarmiento * Return to the office for a follow up check up on: WednesdayNOVEMBER 24 at 3:15 pm * office address--[address] phone # [phone] Pending Studies at Discharge: Yes Studies:: pathology results Wound culture Stand-Alone Forms: [facility], Smoking Cessation Medications and DC Order Prescriptions: New tramadol 50 mg Tablet 50 mg PO Q12H PRN (Reason: pain) Qty: 10 0RF Rx Instructions: please hold for lethargy and drowsiness amoxicillin-pot clavulanate 875-125 mg Tablet 1 tab PO BIDM 7 Days Qty: 14 0RF Discharge Orders: Discharge Order (Routine); Ordered 11/18/22 Ordered By: Reji Estevez Admission Data Admit Date/Time: 11/16/22 09:29 Attending Provider: Reji Estevez Admit Provider: Gloria Sosa Primary Care Provider: Jesse Castano Other Providers: Todd Sarmiento ; Reji Estevez
[2022-11-18] MEDS ORDERED: AMOXICILLIN/CLAVULANATE 875 MG TAB PO SCH (17:00)
== END 2022-11-18 15:39 | disposition home or self-care (01) | DRG 603 ==
LOC: ED 04:02 → EDINP 09:29 → 2W 10:25 → 3W 11-17 16:52